=== PATIENT | male | born 1980 | race Caucasian/White ===

== ENCOUNTER 2017-03-29 01:07 | Observation (INO) | payer SELFPAY ==
[~2017-03-29] VITALS: Ht 182.9 cm; Wt 86.2 kg
[~2017-03-29 01:07] MED LIST: ASPIRIN325 MG PO; Ecotrin PO; FLAGYL500 MG PO; Habitrol,Nicoderm CQ TD; IMDUR30 MG PO; KEFLEX500 MG PO; LISINOPRIL10 MG PO; NORCO 5/3251 TABLET PO; PLAVIX75 MG PO; ZANTAC150 MG PO; Zestril,Prinivil PO; Zocor PO
[2017-03-29 02:12] LABS: HEMATOCRIT 44.8 % (38.0-50.0); MCH 32.4 PG (29.0-34.0); MCHC 33.3 G/DL (30.0-36.0); MCV 97.4 FL (86-99); MEAN PLAT.VOLUME 9.2 uM^3 (9.0-12.4); PLATELET COUNT 305 K/uL (156-360); RBC DIS.WIDTH-CV 12.6 % (11.8-14.6); RBC DIS.WIDTH-SD 45.7 % (39-53); WHITE BLOOD COUNT 9.4 K/uL (4.1-10.2)
[2017-03-29 02:15] LABS: ADD MIUA? YES; BILIRUBIN NEGATIVE; BLOOD NEGATIVE; COLOR YELLOW ((YELLOW)); GLUCOSE (STRIP) NEGATIVE; KETONES NEGATIVE; LEUKOCYTES NEGATIVE; NITRITE NEGATIVE; PROTEIN (STRIP) NEGATIVE; SPECIFIC GRAVITY 1.025 (1.000-1.030); UROBILINOGEN 0.2 MG/DL (0.2-1.0)
[2017-03-29 02:24] LABS: CHLORIDE 107 mEq/L (99-109); POTASSIUM 3.9 mEq/L (3.7-5.4); SODIUM 142 mEq/L (136-147)
[2017-03-29 02:27] LABS: GLUCOSE 101 mg/dL (70-99)
[2017-03-29 02:28] LABS: ANION GAP 9 MEQ/L (2-14)
[2017-03-29 02:29] LABS: TOTAL BILIRUBIN 0.3 mg/dL (0.0-1.0)
[2017-03-29 02:30] LABS: ALKALINE PHOSPHATASE 47 IU/L (3-129); SERUM ETHYL ALCOHOL < 10 mg/dL
[2017-03-29 02:30] LABS: BACTERIA NONE SEEN /HPF; EPITHELIAL CELLS NONE SEEN /HPF; MUCUS TRACE /LPF; RED BLOOD CELLS 0-5 /HPF (0-5); WHITE BLOOD CELLS 0-5 /HPF (0-5)
[2017-03-29 02:31] LABS: GFR ESTIMATE (CALCULATED) > 59 mL/min/
[2017-03-29 02:32] LABS: UREA NITROGEN (BUN) 13 mg/dL (9-23)
[2017-03-29 02:32] LABS: ADD MEDTOX COMMENT Y; AMPHETAMINE NEGATIVE (500 ng/mL); BARBITURATES NEGATIVE (200 ng/mL); BENZODIAZEPINES NEGATIVE (150 ng/mL); COCAINE NEGATIVE (150 ng/mL); INTERNAL CONTROLS VALID? YES; METHADONE NEGATIVE (200 ng/mL); METHAMPHETAMINE NEGATIVE (500 ng/mL); OPIATES (MORPHINE) NEGATIVE (100 ng/mL); OXYCODONE NEGATIVE (100 ng/mL); PHENCYCLIDINE NEGATIVE (25 ng/mL); PROPOXYPHENE NEGATIVE (300 ng/mL); THC CANNABINOIDS PRESUMPTIVE POSITIVE (50 ng/mL); TRICYCLIC ANTIDEPRESSANTS NEGATIVE (300 ng/mL)
[2017-03-29 04:44] VITALS: BP 130/79
[2017-03-29 04:59] LABS: HDL CHOLESTEROL 53 MG/DL (Desirable>=40); LDL CHOLESTEROL 95 mg/dL (Desirable<100); NON-HDL CHOLESTEROL 121 mg/dL (Desirable<160); TOTAL CHOLESTEROL 174 mg/dL (Desirable<200); TRIGLYCERIDES 130 MG/DL (Normal: <150)
[2017-03-29 07:00] VITALS: BP 108/64
[2017-03-29 07:44] LABS: Estimated Average Glucose 103 mg/dL (70-123); HEMOGLOBIN A1c (GLYCOHEMOGLOB) 5.2 % HGB (Below 5.7)
[2017-03-29] MEDS ORDERED: PRAVASTATIN SOD40 MG PO (11:39)
[2017-03-29 11:59] VITALS: BP 95/50
== END 2017-03-29 12:40 | disposition home or self-care (01) ==
LOC: EME 01:07 → EDOF 03:45 → 5WEST 04:32
PROVIDERS: Emergency Medicine; Hospitalist
DX: R20.0 Anesthesia of skin (principal); H53.8 Other visual disturbances; R42 Dizziness and giddiness; F12.90 Cannabis use, unspecified, uncomplicated; I25.10 Atherosclerotic heart disease of native coronary artery without angina pectoris; I25.2 Old myocardial infarction; Z95.5 Presence of coronary angioplasty implant and graft; F17.210 Nicotine dependence, cigarettes, uncomplicated; F10.10 Alcohol abuse, uncomplicated
CPT/HCPCS: 70450; 70496; 70498; 70551; 80053; 80061; 81003; 83036; 84999; 85027; 93005; 99281; 99285; G0378; G0480